=== PATIENT | male | born 1970 | race Two or more races ===

== ENCOUNTER 2018-08-01 03:23 | Inpatient (IN) | payer MEDICAID ==
[~2018-08-01] VITALS: Ht 188 cm; Wt 113.6 kg
[~2018-08-01 03:23] MED LIST: FLO0.4C PO; Hydrocodone Bit/Acetaminophen PO
[2018-08-01] MEDS ORDERED: LIDOcaine 2% (20 mg/ml) 5ml cardiac syringe IV STA (03:30)
[2018-08-01] MEDS ORDERED: normal saline 1000ML IV soln IVB ONE (03:30)
[2018-08-01] MEDS ORDERED: tamsulosin 0.4mg capsule PO ONE (03:30)
[2018-08-01] MEDS ORDERED: ketorolac trometh. 30mg/ml inj. IV ONE (03:30)
[2018-08-01 04:10] LABS: CLARITY,URINE CLEAR (Clear); COLOR,URINE YELLOW (Yellow); GLUCOSE, URINE NEGATIVE (Neg); KETONES,URINE NEGATIVE (Neg); LEUKOCYTE ESTERASE ,URINE NEGATIVE (Neg); NITRITES, URINE NEGATIVE (Neg); OCCULT BLOOD,URINE NEGATIVE (Neg); PH,URINE 6.5 (4.8-8.0); PROTEIN,URINE NEGATIVE (Neg); UROBILINOGEN,URINE 0.2 E.U/dL (0.2-1.0)
[2018-08-01 04:11] LABS: UA COLLECTION TYPE VOIDED
[2018-08-01 04:15] LABS: BASOPHILS # (AUTO) 0.1 X10'3 (0-0.2); BASOPHILS % (AUTO) 0.3 % (0-1); EOSINOPHILS % (AUTO) 0 % (0-6); HEMATOCRIT 46.7 % (42.0-52.0); HEMOGLOBIN 15.3 g/dl (14.0-17.9); LYMPHOCYTES # (AUTO) 1.6 X10'3 (1.1-4.8); LYMPHOCYTES % (AUTO) 8.4 % (21-51); MEAN CORPUSCULAR HEMOGLOBIN 30.2 PG (27.0-31.0); MEAN CORPUSCULAR HGB CONC 32.8 % (33.0-36.5); MEAN CORPUSCULAR VOLUME 91.9 FL (78-98); MEAN PLATELET VOLUME 8.1 FL (7.4-10.4); MONOCYTES # (AUTO) 0.8 X10'3 (0-0.9); MONOCYTES % (AUTO) 4.4 % (2-12); NEUTROPHILS # (AUTO) 16.6 X10'3 (1.8-7.7); NEUTROPHILS % (AUTO) 86.9 % (42-75); PLATELET COUNT 289 X10'3 (140-440); RED BLOOD COUNT 5.08 X10'6 (4.70-6.10); RED CELL DISTRIBUTION WIDTH 14.1 % (11.5-14.5)
[2018-08-01] MEDS ORDERED: meperidine/PF 50mg/ml syringe IV ONE (04:20)
[2018-08-01 04:36] LABS: ALANINE AMINOTRANSFERASE 25 U/L (12-78); ALBUMIN 3.9 G/DL (3.4-5.0); ALBUMIN/GLOBULIN RATIO 1.2 (1.1-1.5); ALKALINE PHOSPHATASE 73 IU/L (46-116); ANION GAP 8 (8-16); ASPARTATE AMINO TRANSFERASE 15 U/L (10-37); BILIRUBIN,TOTAL 0.8 MG/DL (0.1-1.0); BLOOD UREA NITROGEN 19 MG/DL (7-18); BUN/CREATININE RATIO 12.6 (5.4-32.0); CALCIUM 9.4 MG/DL (8.5-10.1); CHLORIDE 105 MMOL/L (99-107); CREATININE 1.51 MG/DL (0.60-1.10); GLUCOSE 120 MG/DL (70-104); LIPASE 149 U/L (73-393); POTASSIUM 4.2 MMOL/L (3.5-5.1); SODIUM 139 MMOL/L (135-145); TOTAL CARBON DIOXIDE 25.9 MMOL/L (24-32); TOTAL PROTEIN 7.2 G/DL (6.4-8.2); eGFR 50 ML/MIN
[2018-08-01] MEDS ORDERED: iohexol 300mg/ml 100ml inj. ONE (04:56)
[2018-08-01] MEDS ORDERED: ciprofloxacin lact 400MG/200ML 200 ML IV STA (05:59)
[2018-08-01] MEDS ORDERED: metroNIDAZOLE-Flagyl 750mg/NS 150 ML IV STA (05:59)
[2018-08-01] MEDS ORDERED: levoFLOXACIN-Levaquin 500mg/D5 100 ML IV ONE (06:00)
[2018-08-01] MEDS ORDERED: metroNIDAZOLE-Flagyl 500mg/NS 100 ML IV ONE ×2 (06:00→07:05)
[2018-08-01] MEDS ORDERED: acetaminophen 650mg rectal suppository RC PRN (06:05)
[2018-08-01] MEDS ORDERED: bisacodyl 10mg suppository rectal RC PRN (06:05)
[2018-08-01] MEDS ORDERED: mag hydrox/Alum hydrox/simeth 30ml oral suspension PO PRN (06:05)
[2018-08-01] MEDS ORDERED: HYDROmorphone 1 mg/ml syringe IV PRN (06:05)
[2018-08-01] MEDS ORDERED: diphenhydrAMINE 50 mg/ml inj IV PRN (06:05)
[2018-08-01] MEDS ORDERED: magnesium hydroxide 30ml (MOM) UD suspension PO PRN (06:05)
[2018-08-01] MEDS ORDERED: diphenhydrAMINE 25mg capsule PO PRN (06:05)
[2018-08-01] MEDS ORDERED: HYDROcodone/acetaminophen 5mg/325mg tablet PO PRN (06:05)
[2018-08-01] MEDS ORDERED: morphine 2 MG/ML inj. syringe IV PRN ×2 (06:05)
[2018-08-01] MEDS ORDERED: acetaminophen 325mg tablet PO PRN ×2 (06:05)
[2018-08-01] MEDS ORDERED: metoclopramide 5 mg/ml inj IV PRN (06:05)
[2018-08-01] MEDS: normal saline 1000ml 1,000 ML IV SCH ×3 (06:52→18:37)
[2018-08-01] MEDS: docusate sod 100mg capsule PO SCH ×2 (07:06→20:00)
[2018-08-01 07:17] LABS: PARTIAL THROMBOPLASTIN TIME 26 SECONDS (22-32); PROTHROMBIN TIME 10.7 SECONDS (9.0-12.0)
[2018-08-01 07:20] LABS: MAGNESIUM 1.8 MG/DL (1.5-2.4); PHOSPHORUS 2.3 MG/DL (2.3-4.5)
[2018-08-01 08:55] VITALS: BP 115/80
[2018-08-01] MEDS: pantoprazole 40 MG vial IV SCH ×2 (10:01→21:10)
[2018-08-01] MEDS: piperacillin/tazo 4.5gm/100ml 100 ML IV SCH ×3 (10:02→23:58)
[2018-08-01 11:54] VITALS: BP 124/61
[2018-08-01] MEDS: HYDROmorphone 1 mg/ml syringe IV PRN ×3 (15:09→23:09)
[2018-08-01] MEDS: HYDROcodone/acetaminophen 10/325mg tab PO PRN ×2 (17:31→21:23)
[2018-08-01] MEDS ORDERED: NO HOME MEDS (18:43)
[2018-08-01 18:45] VITALS: BP 122/65
[2018-08-01] MEDS ORDERED: temazepam 15mg capsule PO PRN (21:00)
[2018-08-01] MEDS: lactobacillus rhamnosus 10,000 MMU CELLS/CAPSULE PO SCH (21:10)
[2018-08-02] VITALS: BP 122/51
[2018-08-02] MEDS: ondansetron/PF 4mg/2ml inj IV PRN ×2 (02:29→19:58)
[2018-08-02] MEDS: HYDROmorphone 1 mg/ml syringe IV PRN ×5 (04:51→23:12)
[2018-08-02 05:16] LABS: BASOPHILS # (AUTO) 0.1 X10'3 (0-0.2); BASOPHILS % (AUTO) 0.5 % (0-1); EOSINOPHILS % (AUTO) 0 % (0-6); HEMATOCRIT 39.9 % (42.0-52.0); HEMOGLOBIN 13.2 g/dl (14.0-17.9); LYMPHOCYTES # (AUTO) 1.5 X10'3 (1.1-4.8); LYMPHOCYTES % (AUTO) 9.5 % (21-51); MEAN CORPUSCULAR HEMOGLOBIN 30.9 PG (27.0-31.0); MEAN CORPUSCULAR HGB CONC 33.2 % (33.0-36.5); MEAN CORPUSCULAR VOLUME 93.1 FL (78-98); MEAN PLATELET VOLUME 7.9 FL (7.4-10.4); MONOCYTES # (AUTO) 1.4 X10'3 (0-0.9); MONOCYTES % (AUTO) 8.9 % (2-12); NEUTROPHILS # (AUTO) 13.1 X10'3 (1.8-7.7); NEUTROPHILS % (AUTO) 81.1 % (42-75); PLATELET COUNT 242 X10'3 (140-440); RED BLOOD COUNT 4.28 X10'6 (4.70-6.10); RED CELL DISTRIBUTION WIDTH 13.5 % (11.5-14.5); WHITE BLOOD COUNT 16.1 X10'3 (4.5-11.0)
[2018-08-02 05:34] LABS: ALANINE AMINOTRANSFERASE 19 U/L (12-78); ALKALINE PHOSPHATASE 60 IU/L (46-116); ANION GAP 9 (8-16); ASPARTATE AMINO TRANSFERASE 11 U/L (10-37); BLOOD UREA NITROGEN 10 MG/DL (7-18); BUN/CREATININE RATIO 9.8 (5.4-32.0); CALCIUM 8.3 MG/DL (8.5-10.1); CHLORIDE 108 MMOL/L (99-107); CREATININE 1.02 MG/DL (0.60-1.10); GLUCOSE 117 MG/DL (70-104); POTASSIUM 3.8 MMOL/L (3.5-5.1); SODIUM 144 MMOL/L (135-145); TOTAL CARBON DIOXIDE 27.2 MMOL/L (24-32); TOTAL PROTEIN 6.1 G/DL (6.4-8.2); eGFR 79 ML/MIN
[2018-08-02 07:00] VITALS: BP 98/59
[2018-08-02] MEDS: lactobacillus rhamnosus 10,000 MMU CELLS/CAPSULE PO SCH ×2 (08:15→21:36)
[2018-08-02] MEDS: docusate sod 100mg capsule PO SCH ×2 (08:15→20:00)
[2018-08-02] MEDS: HYDROcodone/acetaminophen 10/325mg tab PO PRN ×4 (08:17→21:39)
[2018-08-02] MEDS: pantoprazole 40 MG vial IV SCH ×2 (08:17→21:36)
[2018-08-02] MEDS: normal saline 1000ml 1,000 ML IV SCH ×2 (08:20→19:08)
[2018-08-02] MEDS: piperacillin/tazo 4.5gm/100ml 100 ML IV SCH ×3 (08:25→23:55)
[2018-08-02 11:00] VITALS: BP 133/77
[2018-08-02] MEDS ORDERED: magnesium hydroxide 30ml (MOM) UD suspension PO ONE (17:15)
[2018-08-02 19:30] VITALS: BP 134/77
[2018-08-02 23:00] VITALS: BP 113/74
[2018-08-03] MEDS: HYDROmorphone 1 mg/ml syringe IV PRN ×2 (04:33→11:27)
[2018-08-03] MEDS: normal saline 1000ml 1,000 ML IV SCH (04:38)
[2018-08-03 05:27] LABS: BASOPHILS % (AUTO) 0.1 % (0-1); EOSINOPHILS # (AUTO) 0.2 X10'3 (0-0.9); EOSINOPHILS % (AUTO) 1.6 % (0-6); HEMATOCRIT 36.6 % (42.0-52.0); LYMPHOCYTES # (AUTO) 2.2 X10'3 (1.1-4.8); LYMPHOCYTES % (AUTO) 17.6 % (21-51); MEAN CORPUSCULAR HEMOGLOBIN 30.7 PG (27.0-31.0); MEAN CORPUSCULAR HGB CONC 32.9 % (33.0-36.5); MEAN CORPUSCULAR VOLUME 93.4 FL (78-98); MONOCYTES # (AUTO) 1.4 X10'3 (0-0.9); MONOCYTES % (AUTO) 10.8 % (2-12); NEUTROPHILS # (AUTO) 8.7 X10'3 (1.8-7.7); NEUTROPHILS % (AUTO) 69.9 % (42-75); PLATELET COUNT 219 X10'3 (140-440); RED BLOOD COUNT 3.92 X10'6 (4.70-6.10); RED CELL DISTRIBUTION WIDTH 13.7 % (11.5-14.5); WHITE BLOOD COUNT 12.5 X10'3 (4.5-11.0)
[2018-08-03 05:50] LABS: ALANINE AMINOTRANSFERASE 13 U/L (12-78); ALBUMIN 2.7 G/DL (3.4-5.0); ALBUMIN/GLOBULIN RATIO 0.9 (1.1-1.5); ALKALINE PHOSPHATASE 49 IU/L (46-116); ANION GAP 4 (8-16); ASPARTATE AMINO TRANSFERASE 11 U/L (10-37); BILIRUBIN,TOTAL 1.4 MG/DL (0.1-1.0); BLOOD UREA NITROGEN 5 MG/DL (7-18); BUN/CREATININE RATIO 4.2 (5.4-32.0); CALCIUM 8.3 MG/DL (8.5-10.1); CHLORIDE 109 MMOL/L (99-107); CREATININE 1.18 MG/DL (0.60-1.10); GLUCOSE 94 MG/DL (70-104); POTASSIUM 4.5 MMOL/L (3.5-5.1); SODIUM 142 MMOL/L (135-145); TOTAL CARBON DIOXIDE 28.7 MMOL/L (24-32); TOTAL PROTEIN 5.8 G/DL (6.4-8.2); eGFR 66 ML/MIN
[2018-08-03] MEDS: piperacillin/tazo 4.5gm/100ml 100 ML IV SCH (07:44)
[2018-08-03] MEDS: docusate sod 100mg capsule PO SCH (07:44)
[2018-08-03] MEDS: lactobacillus rhamnosus 10,000 MMU CELLS/CAPSULE PO SCH (07:44)
[2018-08-03] MEDS: pantoprazole 40 MG vial IV SCH (07:44)
[2018-08-03] MEDS: HYDROcodone/acetaminophen 10/325mg tab PO PRN (07:47)
[2018-08-03 08:00] VITALS: BP 114/63
[2018-08-03] MEDS ORDERED: AMOX-422 PO (12:32)
[2018-08-03] MEDS ORDERED: HYDR-4353 PO (12:32)
== END 2018-08-03 14:41 | disposition home or self-care (01) | DRG 244 ==
LOC: ER 03:23 → ED HOLD 06:01 → SUR 3N 08:45
PROVIDERS: ADMIT Family Medicine; ATTEND Family Medicine
DX: K57.20 Diverticulitis of large intestine with perforation and abscess without bleeding (principal); N17.0 Acute kidney failure with tubular necrosis; E86.0 Dehydration; I10 Essential (primary) hypertension; D72.829 Elevated white blood cell count, unspecified; N20.0 Calculus of kidney; Z84.89 Family history of other specified conditions; Z79.899 Other long term (current) drug therapy
CPT/HCPCS: 36415; 74018; 74176; 80053; 81003; 83605; 83690; 83735; 83880; 84100; 85025; 85610; 85730; 87040; 87070; 96374; 96375; 99285; C9113; J0744; J1170; J1885; J1956; J2001; J2175; J2405; J2543; J3490; J7030; Q9967